=== PATIENT | female | born 1970 | race Caucasian/White ===

== ENCOUNTER 2019-08-15 12:31 | Emergency (ER) | payer BC, OTHER ==
[~2019-08-15] VITALS: Ht 149.8 cm; Wt 78.1 kg
[2019-08-15] MEDS ORDERED: KETOROLAC 30 MG/ML VIAL ONE (12:53)
--- NOTE | 2019-08-15 13:14 | ED Abdominal Pain ---
General Chief Complaint: Abdominal/GI Problems Stated Complaint: BACK AND SIDE PAIN Nursing Triage Note: AMB TO TRAIGE C/O SIDE PAIN WITH RADIATION TO R LOWER QUAD. Sepsis Screen: No Definite Risk History of Present Illness Date Seen by Provider: Aug 15, 2019 Time Seen by Provider: 13:00 Initial Comments Patient comes in to ER for complaints of left sided flank pain. Acute onset while walking around at [email or web address] this AM. Denies Vomiting but does report nausea . Denies any burning or blood in the urine. Denies history of kidney stones. Timing/Duration: 1-3 Hours Severity/Quality: Mild, Sharp Location: Flank Radiation: No Radiation Activities at Onset: None Associated Symptoms: Denies Symptoms Allergies and Home Medications Allergies Coded Allergies: No Known Drug Allergies (Unverified , 08/15/19) Patient Home Medication List Home Medication List Reviewed: Yes Review of Systems Review of Systems Constitutional: no symptoms reported EENTM: No Symptoms Reported Respiratory: No Symptoms Reported Cardiovascular: No Symptoms Reported Gastrointestinal: Nausea Genitourinary: No Symptoms Reported Musculoskeletal: back pain Skin: no symptoms reported Psychiatric/Neurological: No Symptoms Reported Past Eeimowi-Uiqbks-Ckboqc Hx Patient Social History Alcohol Use: Denies Use Recreational Drug Use: No Smoking Status: Never a Smoker Recent Foreign Travel: No Contact w/Someone Who Travel: No Recent Infectious Disease Expo: No Physical Abuse: No Sexual Abuse: No Past Medical History Surgeries: Yes (D&C) Bladder Surgery Cardiac: Yes Hypertension Endocrine: Yes Hypothyroidsim Psychosocial: Yes Physical Exam Vital Signs Vital Signs - First Documented 08/15/19 12:35 Temp 35.0 Pulse 66 Resp 18 B/P (MAP) 143/65 (91) Pulse Ox 96 O2 Delivery Room Air Capillary Refill : Less Than 3 Seconds Height/Weight/BMI Height: '" Weight: lbs. oz. kg; 34.00 BMI Method: General Appearance: WD/WN, no apparent distress HEENT: PERRL/EOMI Neck: non-tender, supple Respiratory: chest non-tender, lungs clear, normal breath sounds, no respiratory distress, no accessory muscle use Cardiovascular: regular rate, rhythm Peripheral Pulses: 2+ Radial Pulses (R), 2+ Radial Pulses (L) Gastrointestinal: normal bowel sounds, non tender, soft Extremities: non-tender Back: normal inspection, CVA tenderness (R), CVA tenderness (L) Neurologic/Psychiatric: no motor/sensory deficits, alert, normal mood/affect, oriented x 3 Skin: normal color, warm/dry Lymphatic: no adenopathy Progress/Results/Core Measures Results/Orders Lab Results Laboratory Tests Test 08/15/19 12:43 08/15/19 12:50 Range/Units Urine Color YELLOW Urine Clarity CLEAR Urine pH 5.5 5-9 Urine Specific [place] >=1.030 1.016-1.022 Urine Protein NEGATIVE NEGATIVE Urine Glucose (UA) NEGATIVE NEGATIVE Urine Ketones NEGATIVE NEGATIVE Urine Nitrite NEGATIVE NEGATIVE Urine Bilirubin NEGATIVE NEGATIVE Urine Urobilinogen 0.2 < = 1.0 MG/DL Urine Leukocyte Esterase NEGATIVE NEGATIVE Urine RBC (Auto) 3+ H NEGATIVE Urine RBC >100 H /HPF Urine WBC RARE /HPF Urine Squamous Epithelial Cells 0-2 /HPF Urine Crystals NONE /LPF Urine Bacteria TRACE /HPF Urine Casts NONE /LPF Urine Mucus NEGATIVE /LPF Urine Culture Indicated NO White Blood Count 13.1 H 4.3-11.0 10^3/uL Red Blood Count 4.78 4.35-5.85 10^6/uL Hemoglobin 14.3 11.5-16.0 G/DL Hematocrit 43 35-52 % Mean Corpuscular Volume 90 80-99 FL Mean Corpuscular Hemoglobin 30 25-34 PG Mean Corpuscular Hemoglobin Concent 33 32-36 G/DL Red Cell Distribution Width 13.4 10.0-14.5 % Platelet Count 259 130-400 10^3/uL Mean Platelet Volume 9.6 7.4-10.4 FL Neutrophils (%) (Auto) 80 H 42-75 % Lymphocytes (%) (Auto) 14 12-44 % Monocytes (%) (Auto) 5 0-12 % Eosinophils (%) (Auto) 1 0-10 % Basophils (%) (Auto) 0 0-10 % Neutrophils # (Auto) 10.5 H 1.8-7.8 X 10^3 Lymphocytes # (Auto) 1.9 1.0-4.0 X 10^3 Monocytes # (Auto) 0.6 0.0-1.0 X 10^3 Eosinophils # (Auto) 0.1 0.0-0.3 10^3/uL Basophils # (Auto) 0.0 0.0-0.1 10^3/uL Sodium Level 141 135-145 MMOL/L Potassium Level 3.7 3.6-5.0 MMOL/L Chloride Level 103 98-107 MMOL/L Carbon Dioxide Level 24 21-32 MMOL/L Anion Gap 14 5-14 MMOL/L Blood Urea Nitrogen 16 7-18 MG/DL Creatinine 1.17 0.60-1.30 MG/DL Estimat Glomerular Filtration Rate 49 BUN/Creatinine Ratio 14 Glucose Level 127 H 70-105 MG/DL Calcium Level 10.0 8.5-10.1 MG/DL Corrected Calcium 8.5-10.1 MG/DL Total Bilirubin 0.3 0.1-1.0 MG/DL Aspartate Amino Transf (AST/SGOT) 20 5-34 U/L Alanine Aminotransferase (ALT/SGPT) 16 0-55 U/L Alkaline Phosphatase 102 40-136 U/L Total Protein 7.7 6.4-8.2 GM/DL Albumin 4.6 H 3.2-4.5 GM/DL My Orders Orders - PIERO BLACKBURN APRN Ketorolac Injection (Toradol Injection) (08/15/19 12:53) Ketorolac Injection (Toradol Injection) (08/15/19 13:15) Ns Iv 1000 Ml (Sodium Chloride 0.9%) (08/15/19 13:15) Ua Culture If Indicated (08/15/19 13:09) Cbc With Automated Diff (08/15/19 13:09) Comprehensive Metabolic Panel (08/15/19 13:09) Abdomen/Kub 1view (08/15/19 13:11) Ct Abd/Pelvis Wo(Kidney Stone) (08/15/19 13:11) Medications Given in ED Current Medications Medications Dose Ordered Sig/Addie Route Start Time Stop Time Status Last Admin Dose Admin Ketorolac Tromethamine 30 mg STK-MED ONCE .ROUTE 08/15/19 12:53 08/15/19 12:59 DC 08/15/19 12:59 30 MG Vital Signs/I&O 08/15/19 12:35 Temp 35.0 Pulse 66 Resp 18 B/P (MAP) 143/65 (91) Pulse Ox 96 O2 Delivery Room Air Blood Pressure Mean: 91 Diagnostic Imaging Diagonstic Imaging: Xray Comments NAME: VIVMARTHAAmilcar Castellon MED REC#: [id number] PT STATUS: REG ER : 1970 PHYSICIAN: PIERO BLACKBURN APRN ADMIT DATE: 08/15/19/ER Draft Date of Exam:08/15/19 CT ABD/PELVIS WO(KIDNEY STONE) EXAMINATION: CT Abdomen Pelvis without contrast. TECHNIQUE: Multiple contiguous axial images were obtained through the abdomen and pelvis without the use of intravenous contrast. All CT scans use one or more of the following dose optimizing techniques: automated exposure control, MA and/or KvP adjustment based on a patient size and exam type, or iterative reconstruction. HISTORY: Right flank pain. COMPARISON: None available. FINDINGS: Limited views of the lower thorax are unremarkable. The liver is normal without focal lesion. There is no biliary ductal dilation. Gallbladder is normal. Pancreas is normal. Spleen is normal. Adrenal glands are normal. There is a 2 mm obstructing stone at the right ureterovesical junction with mild right hydroureteronephrosis and perinephric stranding of the right kidney. There is no hydronephrosis. Urinary bladder is normal. There are no dilated loops of large or small bowel. No obstruction or inflammation. No free fluid or air. No abdominal or pelvic lymphadenopathy. Aorta is normal in caliber without aneurysm. Small fat-containing umbilical hernia is seen. There are no suspicious osseus lesions. IMPRESSION: 1. Obstructing 2 mm stone at the right ureterovesical junction with mild right hydroureteronephrosis. Dictated on workstation # [id number] Dict: 08/15/19 1330 Trans: 08/15/19 1340 TS [id number] Interpreted by: YASMINE REILLY MD Electronically signed by: Departure Impression Primary Impression: Calculus of kidney Additional Impression: Ureteral calculi Disposition: HOME, SELF-CARE Condition: Improved Departure-Patient Inst. Decision time for Depature: 13:57 Referrals: JHOAN WHITE DO (PCP/Family) Primary Care Physician LIV DANIELS MD Add. Discharge Instructions: Return to ER for fever or intolerable pain. If you have not passed the stone by the end of the week please return to ER or call Dr. Daniels Neurologist. All discharge instructions reviewed with patient and/or family. Voiced understanding. Scripts Tamsulosin HCl (Flomax) 0.4 Mg Cap 0.4 MG PO DAILY for 10 Days, #10 CAP 0 Refills Prov: PIERO BLACKBURN APRN 08/15/19 Ondansetron (Ondansetron Odt) 4 Mg Tab.rapdis 4 MG PO Q4H PRN for NAUSEA/VOMITING-1ST LINE for 5 Days, #30 TAB 0 Refills Prov: PIERO BLACKBURN APRN 08/15/19 Hydrocodone/Acetaminophen (Hydrocodone-Acetamin 5-325 mg) 1 Each Tablet 1 TAB PO Q4-6HR PRN for PAIN-SEVERE (8-10) for 3 Days, #12 TAB 0 Refills Prov: PIERO BLACKBURN APRN 08/15/19 Ketorolac Tromethamine (Ketorolac Tromethamine) 10 Mg Tablet 10 MG PO Q8H PRN for PAIN-MILD (1-4) for 3 Days, #9 TAB 0 Refills Prov: PIERO BLACKBURN APRN 08/15/19 Work/School Note: Work Release Form PIERO BLACKBURN APRN Aug 15, 2019 13:14
[2019-08-15] MEDS ORDERED: KETOROLAC 30 MG/ML VIAL IVP ONE (13:15)
[2019-08-15] MEDS ORDERED: NS IV 1000 ML 1,000 ML IV SCH (13:15)
[2019-08-15 13:17] LABS: BASOPHILS % (AUTO) 0 % (0-10); EOSINOPHILS # (AUTO) 0.1 10^3/uL (0.0-0.3); EOSINOPHILS % (AUTO) 1 % (0-10); HEMATOCRIT 43 % (35-52); HEMOGLOBIN 14.3 G/DL (11.5-16.0); LYMPHOCYTES # (AUTO) 1.9 X 10^3 (1.0-4.0); LYMPHOCYTES % (AUTO) 14 % (12-44); MEAN CORPUSCULAR HEMOGLOBIN 30 PG (25-34); MEAN CORPUSCULAR HGB CONC 33 G/DL (32-36); MEAN CORPUSCULAR VOLUME 90 FL (80-99); MEAN PLATELET VOLUME 9.6 FL (7.4-10.4); MONOCYTES # (AUTO) 0.6 X 10^3 (0.0-1.0); MONOCYTES % (AUTO) 5 % (0-12); NEUTROPHILS # (AUTO) 10.5 X 10^3 (1.8-7.8); NEUTROPHILS % (AUTO) 80 % (42-75); PLATELET COUNT 259 10^3/uL (130-400); RED CELL DISTRIBUTION WIDTH 13.4 % (10.0-14.5); WHITE BLOOD COUNT 13.1 10^3/uL (4.3-11.0)
[2019-08-15 13:17] LABS: BILIRUBIN,URINE NEGATIVE (NEGATIVE); CLARITY,URINE CLEAR; COLOR,URINE YELLOW; GLUCOSE, URINE (UA) NEGATIVE (NEGATIVE); KETONES,URINE NEGATIVE (NEGATIVE); LEUKOCYTE ESTERASE ,URINE NEGATIVE (NEGATIVE); NITRITE,URINE NEGATIVE (NEGATIVE); PH,URINE 5.5 (5-9); PROTEIN,URINE NEGATIVE (NEGATIVE)
[2019-08-15 13:25] LABS: BACTERIA,URINE TRACE /HPF; RBC,URINE >100 /HPF; SQUAMOUS EPITHELIAL CELL,UR 0-2 /HPF; WBC,URINE RARE /HPF
[2019-08-15 13:32] LABS: ALANINE AMINOTRANSFERASE 16 U/L (0-55); ALBUMIN 4.6 GM/DL (3.2-4.5); ALKALINE PHOSPHATASE 102 U/L (40-136); BILIRUBIN,TOTAL 0.3 MG/DL (0.1-1.0); BUN/CREATININE RATIO 14; CARBON DIOXIDE 24 MMOL/L (21-32); CHLORIDE 103 MMOL/L (98-107); CREATININE SERUM 1.17 MG/DL (0.60-1.30); GFR ESTIMATED 49; GLUCOSE 127 MG/DL (70-105); POTASSIUM 3.7 MMOL/L (3.6-5.0); SODIUM 141 MMOL/L (135-145); TOTAL PROTEIN 7.7 GM/DL (6.4-8.2)
--- NOTE | 2019-08-15 13:40 | Diagnostic Imaging Report ---
EXAMINATION: CT Abdomen Pelvis without contrast. TECHNIQUE: Multiple contiguous axial images were obtained through the abdomen and pelvis without the use of intravenous contrast. All CT scans use one or more of the following dose optimizing techniques: automated exposure control, MA and/or KvP adjustment based on a patient size and exam type, or iterative reconstruction. HISTORY: Right flank pain. COMPARISON: None available. FINDINGS: Limited views of the lower thorax are unremarkable. The liver is normal without focal lesion. There is no biliary ductal dilation. Gallbladder is normal. Pancreas is normal. Spleen is normal. Adrenal glands are normal. There is a 2 mm obstructing stone at the right ureterovesical junction with mild right hydroureteronephrosis and perinephric stranding of the right kidney. There is no hydronephrosis. Urinary bladder is normal. There are no dilated loops of large or small bowel. No obstruction or inflammation. No free fluid or air. No abdominal or pelvic lymphadenopathy. Aorta is normal in caliber without aneurysm. Small fat-containing umbilical hernia is seen. There are no suspicious osseus lesions. IMPRESSION: 1. Obstructing 2 mm stone at the right ureterovesical junction with mild right hydroureteronephrosis. Dictated by: Dictated on workstation # [id number]
--- NOTE | 2019-08-15 13:52 | Diagnostic Imaging Report ---
EXAMINATION: Supine abdomen at 1:31 p.m. INDICATION: Right flank pain. FINDINGS: The CT abdomen/pelvis exam performed prior to the study noted a 3.4 mm calculus in the distal right ureter at the ureterovesical junction. That finding is again evident on this study. The 2 mm nonobstructive calculus within the left kidney seen on CT exam is not well appreciated on this exam. Both kidneys are partially obscured by bowel gas and minute punctate radiopaque densities. These may be related to ingested medication. There is no mass or organomegaly appreciated. The osseous structures are intact. IMPRESSION: The obstructive calculus involving the distal right ureter seen on the CT exam is again visualized on this study. The minute nonobstructive calculus within the left kidney however cannot be identified. Dictated by: Dictated on workstation # [id number]
[2019-08-15] MEDS ORDERED: HYDR-3812 PO (13:54)
[2019-08-15] MEDS ORDERED: TMSL.4C PO (13:54)
[2019-08-15] MEDS ORDERED: ONDA4TAB11 PO (13:54)
[2019-08-15] MEDS ORDERED: KETO10TA PO (13:54)
--- NOTE | 2019-08-15 14:45 | NUR ---
Went to discharge pt and pt c/o severe pain. [employer] notified.
[2019-08-15] MEDS ORDERED: morphine INJ 10 MG/ML 1ML (SYR OR VIAL) IVP STA (14:47)
[2019-08-15 15:42] VITALS: BP 143/65
== END 2019-08-15 15:42 | disposition home or self-care (01) ==
LOC: EDUNIT# 12:31 → ER 12:32
DX: N13.2 Hydronephrosis with renal and ureteral calculous obstruction (principal); I10 Essential (primary) hypertension
CPT/HCPCS: 36415; 74018; 74176; 80053; 81000; 85025

== ENCOUNTER → 2021-06-04 | Outpatient (CLI) | payer OTHER ==
[~2021-06-04] MED LIST: ACHD5005 PO; KETO10TA PO; ONDA4TAB11 PO; TMSL.4C PO
--- NOTE | 2021-06-04 10:59 | Diagnostic Imaging Report ---
INDICATION: Routine screening. COMPARISON: 05/09/2020 and 02/25/2018. TECHNIQUE: 2D and 3D bilateral screening mammography was performed with CAD. FINDINGS: Both breasts are heterogeneously dense, limiting the sensitivity of mammography. The circumscribed density in the retroareolar left breast appears stable. The asymmetric density in the upper posterior left breast is stable. There are scattered benign calcifications. No spiculated mass or malignant-appearing microcalcifications are seen. The axillae are unremarkable. IMPRESSION: No mammographic features suspicious for malignancy are identified. ACR BI-RADS Category 2: Benign findings. Result letter will be mailed to the patient. Note: At least 10% of breast cancer is not imaged by mammography. Dictated by: Dictated on workstation # [id number]
== END ==
LOC: RAD 10:15
PROVIDERS: ATTEND Physician Assistant
DX: Z12.31 Encounter for screening mammogram for malignant neoplasm of breast (principal); Z12.11 Encounter for screening for malignant neoplasm of colon; Z12.4 Encounter for screening for malignant neoplasm of cervix; A49.01 Methicillin susceptible Staphylococcus aureus infection, unspecified site; F41.1 Generalized anxiety disorder; R21 Rash and other nonspecific skin eruption
CPT/HCPCS: 77063; 77067

== ENCOUNTER → 2021-12-03 | Outpatient (REF) ==
--- NOTE | 2021-12-03 11:04 | Diagnostic Imaging Report ---
INDICATION: 51-year-old female, fall with neck pain.. TECHNIQUE: AP, lateral, and odontoid views cervical spine.. CORRELATION STUDY: None. FINDINGS: Straightening of the normal cervical lordosis. There is also mild retrolisthesis of C5 in regards to C6 and mild anterolisthesis of C7 on T1. Slight loss of height, nonacute, at the C5 and C6 levels. Rather prominent asymmetric disc space narrowing at the C5-C6 level with prominent osteophyte formation both anteriorly and posteriorly likely results in some degree of osseous encroachment of the canal and/or foramina. Additional areas of less severe narrowing are noted but slightly more pronounced at the C3-C4 level which also demonstrates mild endplate osteophyte formation. Odontoid tip obscured. Base unremarkable. Lateral masses of C1 and C2 are aligned. IMPRESSION: Negative for acute findings in the cervical spine. Multifocal areas of cervical spondylosis are present with loss of disc space height and endplate osteophyte formation resulting in a likely component of foraminal and/or canal narrowing. Dictated by: Dictated on workstation # [id number]
== END | disposition home or self-care (01) ==
LOC: OCC 10:33
PROVIDERS: ATTEND Nurse Practitioner Family
DX: Z01.818 Encounter for other preprocedural examination (principal)
CPT/HCPCS: 72040